=== PATIENT | female | born 1955 | race Caucasian/White ===

== ENCOUNTER 2020-08-14 10:31 | Outpatient (CLI) | payer BC, SELFPAY ==
--- NOTE | ~2020-08-14 | CT_ITS ---
EXAMINATION: CT IAC/mastoids BI wo con DATE: 08/14/2020 11:07 INDICATION: Polyp of left middle ear. TECHNIQUE: Computed tomography (CT) of the temporal bones was performed without intravenous contrast. Automated exposure control and iterative reconstruction technique were employed. The dose-length pro duct was 194.91 mGy-cm. COMPARISON: None FINDINGS: RIGHT TEMPORAL BONE: The internal auditory canal, cochlea, vestibule, semicircular canals, vestibular aqueduct, carotid ca nal, jugular bulb, facial nerve course, ossicles, tympanic membrane, Prussak space, scutum, mastoid a ir cells, and external auditory canal are normal. LEFT TEMPORAL BONE: The internal auditory canal, cochlea, vestibule, semicircular canals, vestibular aqueduct, carotid ca nal, and jugular bulb normal. There is material in the tympanic cavity including around the ossicles. There is complete opacification of the mastoid air cells. There are erosions of the ossicles and mas toid septa. There is dehiscence of tegmen tympani. There are erosions of scutum. There is thickening of the tympanic membrane. There is a small volume of material in the inferior aspect of the external auditory canal abutting the tympanic membrane. IMPRESSION: 1. Material in the left tympanic cavity and mastoid air cells with erosions of bone, consistent with chronic otitis media and/or cholesteatoma. Reviewed, dictated and finalized at location A.
== END 2020-08-14 10:32 | disposition home or self-care (01) ==
PROVIDERS: PCP Family Medicine; Visit Provider Otolaryngology
DX: H74.42 Polyp of left middle ear (principal); H71.92 Unspecified cholesteatoma, left ear
CPT/HCPCS: 70480

== ENCOUNTER 2020-10-24 07:52 | Outpatient (CLI) | payer BC, SELFPAY | END 2020-10-24 07:53 | disposition home or self-care (01) | LOC: CHSAUDIO 07:57 | PROVIDERS: PCP Family Medicine; Visit Provider Otolaryngology | DX: H91.92 Unspecified hearing loss, left ear (principal) | CPT/HCPCS: 92557; 92567 ==